=== PATIENT | female | born 1970 | race Caucasian/White ===

== ENCOUNTER 2016-11-20 12:44 | Emergency (ER) | payer OTHER ==
[2016-11-20 14:59] LABS: Urine Bacteria Absent (Absent); Urine Bilirubin Negative (Negative); Urine Glucose Negative (Negative); Urine Nitrite Negative (Negative)
[2016-11-20] MEDS ORDERED: Fluconazole 100 MG TAB* TAB PO ONE (15:23)
[2016-11-20] MEDS ORDERED: Ciprofloxacin TAB* 500 MG PO ONE (15:23)
[2016-11-20 15:36] VITALS: BP 126/62
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
== END 2016-11-20 15:35 | disposition home or self-care (01) ==
LOC: ED 12:44
DX: R32 Unspecified urinary incontinence (principal); B37.9 Candidiasis, unspecified; N39.0 Urinary tract infection, site not specified; F17.210 Nicotine dependence, cigarettes, uncomplicated
CPT/HCPCS: 81003; 81015; 87086; 99282; A9270-GY

== ENCOUNTER 2017-01-10 06:31 | Emergency (ER) | payer OTHER ==
[2017-01-10 06:45] VITALS: BP 131/76
[2017-01-10 07:10] LABS: Hematocrit 41 % (35-47); Hemoglobin 13.7 g/dl (12.0-16.0); Mean Corpuscular HGB Conc 33 g/dl (31-36); Mean Corpuscular Hemoglobin 31 pg (27-31); Mean Corpuscular Volume 94 fL (80-97); Mean Platelet Volume 10 um3 (7.4-10.4); Red Blood Count 4.37 10^6/ul (4.0-5.4); Red Cell Distribution Width 13 % (10.5-15); White Blood Count 7.7 10^3/ul (3.5-10.8)
[2017-01-10 07:30] LABS: ALT 12 U/L (7-52); AST 12 U/L (13-39); Albumin 4.1 g/dL (3.2-5.2); Alkaline Phosphatase 56 U/L (34-104); Anion Gap 4 mmol/L (2-11); BUN/Creatinine Ratio 11.1 (8-20); Blood Urea Nitrogen 9 mg/dL (6-24); CO2 Carbon Dioxide 27 mmol/L (22-32); Chloride 103 mmol/L (101-111); EGFR African American 98.3 (>60); EGFR Non-African American 76.5 (>60); Globulin 2.4 g/dL (2-4); Glucose 90 mg/dL (70-100); Potassium 3.3 mmol/L (3.5-5.0); Sodium 134 mmol/L (133-145); Total Protein 6.5 g/dL (6.4-8.9)
[2017-01-10 07:32] LABS: Urine Bacteria Absent (Absent); Urine Bilirubin Negative (Negative); Urine Glucose Negative (Negative); Urine Nitrite Negative (Negative)
[2017-01-10] MEDS ORDERED: Potassium Chlor TAB* 20 MEQ TAB.ER PO ONE (07:39)
[2017-01-10 07:51] LABS: Benzodiazepine Urine Screen None Detected (None Detect)
[2017-01-10 07:59] LABS: Acetaminophen < 15 mcg/mL; Alcohol < 10 mg/dL (<10); Salicylate < 2.50 mg/dL (<30)
[2017-01-10 08:10] LABS: TSH (Thyroid Stimulating Horm) 1.14 mcIU/mL (0.34-5.60)
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
== END 2017-01-10 08:07 | disposition left against medical advice (07) ==
LOC: ED 06:31
DX: F41.9 Anxiety disorder, unspecified (principal); R55 Syncope and collapse; R56.9 Unspecified convulsions; J45.909 Unspecified asthma, uncomplicated; F50.9 Eating disorder, unspecified; F17.210 Nicotine dependence, cigarettes, uncomplicated
CPT/HCPCS: 36415; 80053; 80307; 80320; 80329; 81003; 81015; 84443; 85025; 87086; 99282; G0480

== ENCOUNTER 2017-01-10 17:17 | Inpatient (IN) | payer MEDICAID ==
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
[2017-01-11] MEDS ORDERED: Acetaminophen TAB* 325 MG PO PRN (02:36)
[2017-01-11] MEDS ORDERED: Al Hydrox/Mg Hydrox/Simet LIQ* 30 ML UDC PO PRN (02:36)
[2017-01-11] MEDS ORDERED: Albuterol HFA INHALER* 8 gm MDI INH PRN (02:43)
[2017-01-11] MEDS ORDERED: Albuterol/Ipratropium RESP(NF) MDI (Combivent Respimat) INH PRN (02:45)
[2017-01-11] MEDS ORDERED: lamoTRIgine TAB(*) 100 MG PO SCH (09:00)
[2017-01-11] MEDS: CMCS:Lurasidone (NF) 40 MG TAB PO SCH (09:05)
[2017-01-11] MEDS: Mometasone/Formoter 200/5 MDI INH SCH ×2 (09:05→21:19)
[2017-01-11] MEDS: Docusate CAP* 100 MG PO SCH ×2 (09:07→21:18)
[2017-01-11] MEDS: Vitamin THERAPEUTIC TAB PO SCH (09:07)
[2017-01-11] MEDS: Benztropine TAB* 2 MG PO SCH ×2 (09:07→21:18)
[2017-01-11] MEDS: Fluticasone NASAL SPRAY 50MCG* 16 gm SPRAY BTL BOTH NARES SCH ×2 (09:07→21:17)
[2017-01-11] MEDS: BuPROPion XL* 150 MG TAB.XL PO SCH (09:07)
[2017-01-11] MEDS: Nicotine Inhaler* 10 MG AMP INH PRN ×2 (12:22→21:17)
[2017-01-11] MEDS ORDERED: Mouth Piece, Nicotine* 1 EACH CARTRIDGE ONE (12:22)
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
[2017-01-11] MEDS: lamoTRIgine TAB(*) 100 MG PO SCH (21:18)
[2017-01-11] MEDS: Montelukast Sodium TAB* 10 MG PO SCH (21:18)
[2017-01-11] MEDS: metroNIDAZOLE TAB* 250 MG PO SCH (21:18)
[2017-01-12] MEDS: Mometasone/Formoter 200/5 MDI INH SCH ×2 (08:11→21:48)
[2017-01-12] MEDS: Fluticasone NASAL SPRAY 50MCG* 16 gm SPRAY BTL BOTH NARES SCH ×2 (08:11→21:48)
[2017-01-12] MEDS: metroNIDAZOLE TAB* 250 MG PO SCH ×2 (08:12→21:48)
[2017-01-12] MEDS: Docusate CAP* 100 MG PO SCH ×2 (08:12→21:47)
[2017-01-12] MEDS: CMCS:Lurasidone (NF) 40 MG TAB PO SCH (08:12)
[2017-01-12] MEDS: Vitamin THERAPEUTIC TAB PO SCH (08:12)
[2017-01-12] MEDS: BuPROPion XL* 150 MG TAB.XL PO SCH (08:12)
[2017-01-12] MEDS: Benztropine TAB* 2 MG PO SCH ×2 (08:12→21:48)
[2017-01-12] MEDS: Diclofenac Sodium EC TAB* 25 MG PO PRN ×2 (08:15→13:45)
[2017-01-12] MEDS: Nicotine Inhaler* 10 MG AMP INH PRN ×3 (08:50→15:57)
--- NOTE | 2017-01-12 19:05 | PN ---
Subjective - Subjective Service Type: 10658 Hosp care 15 min low complexity Subjective: Patient noted to be visible in the milieu and participating in groups. On interview she is less activated, affect is brighter, and her attention to hygiene is improved. Patient is more restrained and does not express and delusional thinking during the interview. She is noticeably more linear in TP. Patient asked for the clinic name or the name of the surgeon who placed her permanent catheter 6 months ago. There are no records of patient having placement of a catheter at [facility] as patient reported on admission. Patient is unable to give this information. She was informed the hospitalist consult will be d/c'd as per ED exam there no urinary catheter. Patient reports no ongoing HI towards her case mx Shavonne. She reports she called Shavonne and apologized for displacing anger on her. Patient was asked if she made other threats of HI, as the ED note reported a homicidal threat made to her PCP. Patient denied this reporting she made no threats to her PCP, but has recently fired that person. Patient stated Shavonne was the only person she did this to, and again made the point to report she'd called her and apologized. Patient denies s/e's on higher dose of Latuda. Patient reports sleep , appetite and energy are wnl. She denies SI/HI and AH/VH. Objective - Appearance Appearance: Thin Framed Dysmorphic Features: No Hygiene: Normal Grooming: Well Kept - Behavior Psychomotor Activities: Normal Exhibits Abnormal Movement: No - Attitude and Relatedness Attitude and Relatedness: Cooperative Eye Contact: Good - Speech Quality: Unpressured Latencies: Normal Quantity: Appropriate - Mood Patient's Decription of Mood: "Good" - Affect Observed Affect: Fair Affect Consistent with: Euthymia - Thought Process Patient's Thought Process: Coherent Thought Content: No Passive Wish, No Suicidal Planning, No Homicidal Ideation, No Paranoid Ideation - Sensorium Experiencing Hallucinations: No, Sensorium is Clear Type of Hallucinations: Visual: No, Auditory: No, Command: No - Level of Consciousness Level of Consciousness: Alert Orientation: Yes Intact, Yes Orientated to Time, Yes Orientated to Place, Yes Orientated to Person - Impulse Control Impulse Control: Intact - Insight and Judgement Insight and Judgement: Fair - Group Participation Particating in Group Activities: Yes - Medication Management Medication Management Adherence: Yes Assessment - Assessment Merits Inpatient Hospitalization: For Immediate Safety, For Stabilization Inpatient DSM-IV Dx: 1. Delusional disorder Plan - Plan Treatment Plan: Name: LOUIS MUSTAFA Birthdate: 1970 [id number] PLAN: ------ 1. Continue admission to [facility] for safety and symptom mx. 2. Continue Latuda at 80mg po daily for psychosis. Continue remainder of psychotropic regimen at current doses. 3. Collateral information from [place], PCP, and COUNTS INCLUDE 234 BEDS AT THE [facility] providers. 4. Patient to participate in milieu activities and groups. Medications: Current Medications Acetaminophen (Tylenol Tab*) 650 mg PO Q4H PRN PRN Reason: PAIN or TEMP > 101 F Al Hydrox/Mg Hydrox/Simethicone (Maalox Plus*) 30 ml PO Q4H PRN PRN Reason: INDIGESTION Albuterol (Ventolin Hfa Inhaler*) 2 puff INH Q4H PRN PRN Reason: WHEEZING Albuterol/Ipratropium (Combivent Respimat(Nf)) 1 puff INH Q4H PRN PRN Reason: . Benztropine Mesylate (Cogentin Tab*) 2 mg PO BID [facility] Last Admin: 01/12/17 08:12 Dose: 2 mg Bupropion HCl (Wellbutrin Xl *) 150 mg PO QAM [facility] Last Admin: 01/12/17 08:12 Dose: 150 mg Diclofenac Sodium (Voltaren Ec Tab*) 50 mg PO TID PRN PRN Reason: PAIN Last Admin: 01/12/17 13:45 Dose: 50 mg Docusate Sodium (Colace Cap*) 100 mg PO BID [facility] Last Admin: 01/12/17 08:12 Dose: 100 mg Fluticasone Propionate (Flonase Nasal [place] 50mcg*) 1 spray BOTH NARES BID [facility] Last Admin: 01/12/17 08:11 Dose: 1 spray Lamotrigine (Lamictal Tab(*)) 200 mg PO BEDTIME [facility] Last Admin: 01/11/17 21:18 Dose: 200 mg Lurasidone HCl (Latuda (Nf)) 80 mg PO QAM [facility] Last Admin: 01/12/17 08:12 Dose: 80 mg Metronidazole (Flagyl Tab*) 500 mg PO BID [facility] Stop: 01/20/17 21:00 Last Admin: 01/12/17 08:12 Dose: 500 mg Mometasone Furoate/Formoterol Fumar (Dulera 200/5 Mdi*) 2 puff INH BID [facility] Last Admin: 01/12/17 08:11 Dose: 2 puff Montelukast Sodium (Singulair Tab*) 10 mg PO BEDTIME [facility] Last Admin: 01/11/17 21:18 Dose: 10 mg Multivitamins (Theragran Tab*) 1 tab PO DAILY [facility] Last Admin: 01/12/17 08:12 Dose: 1 tab Nicotine (Nicotine Inhaler*) 10 mg INH Q2H PRN PRN Reason: CRAVING Last Admin: 01/12/17 15:57 Dose: 10 mg - Discharge Plan Discharge Plan: Outpatient Follow Up
[2017-01-12] MEDS: Montelukast Sodium TAB* 10 MG PO SCH (21:47)
[2017-01-12] MEDS: lamoTRIgine TAB(*) 100 MG PO SCH (21:48)
[2017-01-13] MEDS: Nicotine Inhaler* 10 MG AMP INH PRN ×3 (08:25→14:36)
[2017-01-13] MEDS: Docusate CAP* 100 MG PO SCH ×2 (08:26→21:22)
[2017-01-13] MEDS: Benztropine TAB* 2 MG PO SCH ×2 (08:27→21:22)
[2017-01-13] MEDS: Mometasone/Formoter 200/5 MDI INH SCH ×2 (08:27→21:28)
[2017-01-13] MEDS: Fluticasone NASAL SPRAY 50MCG* 16 gm SPRAY BTL BOTH NARES SCH ×2 (08:27→21:29)
[2017-01-13] MEDS: CMCS:Lurasidone (NF) 40 MG TAB PO SCH (08:28)
[2017-01-13] MEDS: Vitamin THERAPEUTIC TAB PO SCH (08:28)
[2017-01-13] MEDS: metroNIDAZOLE TAB* 250 MG PO SCH ×2 (08:28→21:22)
[2017-01-13] MEDS: BuPROPion XL* 150 MG TAB.XL PO SCH (08:28)
[2017-01-13] MEDS: Diclofenac Sodium EC TAB* 25 MG PO PRN ×2 (08:29→14:37)
--- NOTE | 2017-01-13 17:02 | PN ---
Subjective - Subjective Service Type: 38692 Hosp care 15 min low complexity Subjective: Patient again bright on interview. She is pleasant, calm and cooperative. Patient noted to be visible in the milieu and participating in groups. Patient reports med compliance and denies med s/e. Patient reports sleep and appetite have been good. She denies racing thoughts and irritability. She has displayed no aggressive behaviors on the unit. Patient has not been threatening since admission. She has not expressed delusions to this provider in over 48hrs. Patient denies SI and HI and denies AH/VH. Patient informed staff from [facility] will be called to eval patient for readiness to return to the residence. She is amenable. Objective - Appearance Appearance: Well Developed/Nourished Dysmorphic Features: No Hygiene: Normal Grooming: Well Kept - Behavior Psychomotor Activities: Normal Exhibits Abnormal Movement: No - Attitude and Relatedness Attitude and Relatedness: Cooperative Eye Contact: Good - Speech Quality: Unpressured Latencies: Normal Quantity: Appropriate - Mood Patient's Decription of Mood: "Good" - Affect Observed Affect: Good Affect Consistent with: Euthymia - Thought Process Patient's Thought Process: Coherent Thought Content: No Passive Wish, No Suicidal Planning, No Homicidal Ideation, No Paranoid Ideation - Sensorium Experiencing Hallucinations: No, Sensorium is Clear Type of Hallucinations: Visual: No, Auditory: No, Command: No - Level of Consciousness Level of Consciousness: Alert Orientation: Yes Intact, Yes Orientated to Time, Yes Orientated to Place, Yes Orientated to Person - Impulse Control Impulse Control: Intact - Insight and Judgement Insight and Judgement: Fair - Group Participation Particating in Group Activities: Yes - Medication Management Medication Management Adherence: Yes Assessment - Assessment Merits Inpatient Hospitalization: For Immediate Safety, For Stabilization Inpatient DSM-IV Dx: 1. Delusional disorder. 2. r/o Bipolar disorder Plan - Plan Treatment Plan: Name: LOUIS MUSTAFA Birthdate: 1970 [id number] PLAN: ------ 1. Continue admission to [facility] for safety and symptom mx. 2. Continue Latuda at 80mg po daily for psychosis. Continue remainder of psychotropic regimen at current doses. 3. Dr. Silveira called in regard to med modification. Left . 4. [facility] staff called to set up time to reevaluate patient for readiness to return to residence. 5. Patient to participate in milieu activities and groups. Medications: Current Medications Acetaminophen (Tylenol Tab*) 650 mg PO Q4H PRN PRN Reason: PAIN or TEMP > 101 F Al Hydrox/Mg Hydrox/Simethicone (Maalox Plus*) 30 ml PO Q4H PRN PRN Reason: INDIGESTION Albuterol (Ventolin Hfa Inhaler*) 2 puff INH Q4H PRN PRN Reason: WHEEZING Albuterol/Ipratropium (Combivent Respimat(Nf)) 1 puff INH Q4H PRN PRN Reason: . Benztropine Mesylate (Cogentin Tab*) 2 mg PO BID [facility] Last Admin: 01/13/17 08:27 Dose: 2 mg Bupropion HCl (Wellbutrin Xl *) 150 mg PO QAM [facility] Last Admin: 01/13/17 08:28 Dose: 150 mg Diclofenac Sodium (Voltaren Ec Tab*) 50 mg PO TID PRN PRN Reason: PAIN Last Admin: 01/13/17 14:37 Dose: 50 mg Docusate Sodium (Colace Cap*) 100 mg PO BID [facility] Last Admin: 01/13/17 08:26 Dose: 100 mg Fluticasone Propionate (Flonase Nasal [place] 50mcg*) 1 spray BOTH NARES BID [facility] Last Admin: 01/13/17 08:27 Dose: 1 spray Lamotrigine (Lamictal Tab(*)) 200 mg PO BEDTIME [facility] Last Admin: 01/12/17 21:48 Dose: 200 mg Lurasidone HCl (Latuda (Nf)) 80 mg PO QAM [facility] Last Admin: 01/13/17 08:28 Dose: 80 mg Metronidazole (Flagyl Tab*) 500 mg PO BID [facility] Stop: 01/20/17 21:00 Last Admin: 01/13/17 08:28 Dose: 500 mg Mometasone Furoate/Formoterol Fumar (Dulera 200/5 Mdi*) 2 puff INH BID [facility] Last Admin: 01/13/17 08:27 Dose: 2 puff Montelukast Sodium (Singulair Tab*) 10 mg PO BEDTIME [facility] Last Admin: 01/12/17 21:47 Dose: 10 mg Multivitamins (Theragran Tab*) 1 tab PO DAILY [facility] Last Admin: 01/13/17 08:28 Dose: 1 tab Nicotine (Nicotine Inhaler*) 10 mg INH Q2H PRN PRN Reason: CRAVING Last Admin: 01/13/17 14:36 Dose: 10 mg - Discharge Plan Discharge Plan: Outpatient Follow Up Outpatient Program: [facility]
[2017-01-13] MEDS: Montelukast Sodium TAB* 10 MG PO SCH (21:22)
[2017-01-13] MEDS: lamoTRIgine TAB(*) 100 MG PO SCH (21:22)
[2017-01-14 07:26] VITALS: BP 121/70
[2017-01-14] MEDS: Fluticasone NASAL SPRAY 50MCG* 16 gm SPRAY BTL BOTH NARES SCH (08:34)
[2017-01-14] MEDS: Benztropine TAB* 2 MG PO SCH (08:35)
[2017-01-14] MEDS: Mometasone/Formoter 200/5 MDI INH SCH (08:35)
[2017-01-14] MEDS: CMCS:Lurasidone (NF) 40 MG TAB PO SCH (08:35)
[2017-01-14] MEDS: BuPROPion XL* 150 MG TAB.XL PO SCH (08:35)
[2017-01-14] MEDS: Vitamin THERAPEUTIC TAB PO SCH (08:36)
[2017-01-14] MEDS: Docusate CAP* 100 MG PO SCH (08:36)
[2017-01-14] MEDS: metroNIDAZOLE TAB* 250 MG PO SCH (08:36)
[2017-01-14] MEDS: Nicotine Inhaler* 10 MG AMP INH PRN ×2 (13:31→15:21)
--- NOTE | 2017-01-14 16:37 | DS ---
Subjective - Subjective Service Types: [id number] [facility] Day Mgmt simple under 30 min Treatment Course & Assessment Clinical Course & Impression: HOSPITAL COURSE: Patient admitted after report to police from patient's that she made suicidal statement and has been displaying worsening depressive symptoms. Patient has significant stressor in that the she has lost custody of her 9yo due to CPS/DSS error. She reports her work to have the case re-evaluated with the information she now has has not been undertaken. She reports the DSS "hoops" have become a burden and CPS has recently decrease patient's visitation with her 9yo because of her not getting proof of counseling in as required. Patient reported again on day of discharge that her statement was made in anger. She has reported no SI/HI since admission Wednesday. Patient was med compliant, requesting her home med regimen be continued,which had been beneficial, reporting she wants to discuss recommended modification with her [facility] psychiatrist. On day of discharge patient calm and cooperative. She is psychiatrically stable and future oriented. She is amenable to discharge f/u plan. Patient asked to present to her local ED if SI recurs. She was amenable and acknowledged understanding of her family and community supports. Patient is future oriented, now re-enrolled for next semester and has set goals to restore her finances and get back into her own apartment. Patient's immediate suicide risk profile has been significantly reduced. While acute risk is low now, patient's overall risk profile is fluid. A new stressor could trigger a suicide attempt at any time. Patient's modifiable symptoms at admission have resolved, AHs, SI with plan. Patient is requesting discharge, and as the therapeutic yield from this admission is notably been maxed, patient's request will be respected. Pateint's acute risk has been reduced significantly. Patient is amenable to f/u and will be discharge home to mother's care. PERTINENT LABS: Lipid panel (04/2016) - wnl HgBA1C (04/2016) - wnl Laboratory Tests Discharge Meds: HOSPITAL COURSE: Patient asked to present to her local ED if SI recurs. She was amenable and acknowledged understanding of her family and community supports. Patient is future oriented, now re-enrolled for next semester and has set goals to restore her finances and get back into her own apartment. Patient's immediate suicide risk profile has been significantly reduced. While acute risk is low now, patient's overall risk profile is fluid. A new stressor could trigger a suicide attempt at any time. Patient's modifiable symptoms at admission have resolved, AHs, SI with plan. Patient is requesting discharge, and as the therapeutic yield from this admission is notably been maxed, patient's request will be respected. Pateint's acute risk has been reduced significantly. Patient is amenable to f/u and will be discharge home to mother's care. PERTINENT LABS: Lipid panel (04/2016) - wnl HgBA1C (04/2016) - wnl Laboratory Tests Discharge Meds: Home Medications Medication Instructions Recorded Confirmed Type Advair Diskus 250-50* 1 puff INH BID 06/07/12 06/07/12 History Albuterol HFA INHALER* [Ventolin 2 puff .SEE ORDER QID PRN 06/30/12 06/30/12 History HFA Inhaler*] Fluticasone-Salmeterol 250-50* 1 puff .SEE ORDER BID 06/30/12 06/30/12 History [Advair Diskus 250-50*] Montelukast Sodium TAB* [Singulair 10 mg PO DAILY 06/30/12 06/30/12 History 10 MG TAB*] Diclofenac Sodium [Diclofenac 50 mg PO TID PRN #30 tab 11/12/[address]] Benztropine TAB* [Cogentin TAB*] 2 mg PO BID #60 01/14/17 Rx Bupropion XL* [Wellbutrin XL *] 150 mg PO QAM #30 tab 01/14/17 Rx Lurasidone (NF) [Latuda (NF)] 80 mg PO QAM #60 tab 01/14/17 Rx lamoTRIgine TAB(*) [Lamictal 200 mg PO DAILY #60 01/14/17 Rx TAB(*)] metroNIDAZOLE TAB* [Flagyl 250 mg 500 mg PO BID #14 tab 01/14/17 Rx TAB*] traZODone TAB* [Desyrel TAB*] 150 mg PO BEDTIME #90 01/14/17 Rx Inpatient DSM-IV Dx: 1. Delusional disorder. 2. r/o Bipolar disorder Discharge Planning - Discharge Planning Medications: Medication Instructions Recorded Confirmed Type Advair Diskus 250-50* 1 puff INH BID 06/07/12 06/07/12 History Albuterol HFA INHALER* [Ventolin 2 puff .SEE ORDER QID PRN 06/30/12 06/30/12 History HFA Inhaler*] Benztropine TAB* [Cogentin TAB*] 2 mg PO BID 06/30/12 06/30/12 History Fluticasone-Salmeterol 250-50* 1 puff .SEE ORDER BID 06/30/12 06/30/12 History [Advair Diskus 250-50*] HydrOXYzine PAMOATE* [Vistaril 100 mg PO BID 06/30/12 06/30/12 History CAP*] Montelukast Sodium TAB* [Singulair 10 mg PO DAILY 06/30/12 06/30/12 History 10 MG TAB*] lamoTRIgine TAB(*) [Lamictal 200 mg PO DAILY 06/30/12 06/30/12 History TAB(*)] traZODone TAB* [Desyrel TAB*] 150 mg PO BEDTIME 06/30/12 06/30/12 History Diclofenac Sodium [Diclofenac 50 mg PO TID PRN #30 tab 11/12/[address]] Bupropion XL* [Wellbutrin XL *] 150 mg PO QAM tab 01/14/17 Rx Lurasidone (NF) [Latuda (NF)] 80 mg PO QAM tab 01/14/17 Rx Discharge Planning: Prescriptions provided for discharge [x] Yes [] No Follow up care details as per social work arrangements. Patient response to discharge plan: [] eager for discharge [x] agreeable with discharge plan [] ambivalent about discharge [] disagrees with discharge today
== END 2017-01-14 16:40 | disposition home or self-care (01) | DRG 760 ==
LOC: ED 17:17 → BSU 21:20
PROVIDERS: ADMIT Psychiatry & Neurology Psychiatry; ATTEND Psychiatry & Neurology Psychiatry
DX: F22 Delusional disorders (principal); R45.851 Suicidal ideations; F50.9 Eating disorder, unspecified; F31.9 Bipolar disorder, unspecified; F12.90 Cannabis use, unspecified, uncomplicated; J44.9 Chronic obstructive pulmonary disease, unspecified; F17.210 Nicotine dependence, cigarettes, uncomplicated; R40.2412 Glasgow coma scale score 13-15, at arrival to emergency department; R87.5 Abnormal microbiological findings in specimens from female genital organs; Z88.8 Allergy status to other drugs, medicaments and biological substances; Z81.8 Family history of other mental and behavioral disorders; Z91.048 Other nonmedicinal substance allergy status
CPT/HCPCS: 87480; 87491; 87510; 87591; 87661; 99222; 99231; 99238; A9270-GY

== ENCOUNTER 2019-04-02 19:15 | Emergency (ER) | payer OTHER ==
--- NOTE | 2019-04-02 19:38 | ED ---
Back Pain - HPI Summary HPI Summary: This patient is a 48 year old F BIBA to ED via EMS with a chief complaint of sudden left lower back pain since 0230 this morning. When she went to bed last night, she felt a mild pinch, not the pain she has now. Patient has been sleeping most of the day with a heat pack. She denies having similar symptoms before. She denies a history of kidney stones or kidney disease. Patient denies urinary symptoms, nausea, vomiting, and diarrhea. Her last bowel movement was last night. She reports starting her period one hour ago. The patient rates the pain 7/10 in severity. Symptoms aggravated by movement (bending/twisting). Symptoms alleviated by nothing. - History of Current Complaint Chief Complaint: EDFlankPain Stated Complaint: BACK PAIN PER EMS Time Seen by Provider: 04/02/19 19:29 Hx Obtained From: Patient Onset/Duration: Sudden Onset, Lasting Hours - Since 0230 this morning, Still Present Onset/Duration: Started Hours Ago - Since 229 this morning, Still Present Timing: Constant, Lasting Hours - Since 229 this morning Back Pain Location: Is Discrete @ - Lower left Severity Initially: Moderate Severity Currently: Moderate Pain Intensity: 7 Pain Scale Used: 0-10 Numeric Aggravating Symptom(s): Movement, Bending Alleviating Symptom(s): Nothing Associated Signs And Symptoms: Positive: Negative - N/V/D. Negative: Bladder Incontinence - Allergies/Home Medications Allergies/Adverse Reactions: Allergies Allergy/AdvReac Type Severity Reaction Status Date / Time lurasidone [From Latuda] Allergy Leg Cramps Verified 04/02/19 19:49 MS Cat Hair Extract Allergy Sneezing Verified 01/10/17 17:39 [Cat Hair Extract] MS Gabapentin Allergy Dizziness Verified 01/10/17 17:39 [From Neurontin] Home Medications: Home Medications ARIPiprazole [Aripiprazole] 20 mg PO DAILY 04/02/19 [History Confirmed 04/02/19] PMH/Surg Hx/FS Hx/Imm Hx Endocrine/Hematology History: Denies: Hx Diabetes, Hx Systemic Lupus Erythematosus Cardiovascular History: Reports: Other Cardiovascular Problems/Disorders - "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, I guess I will have open heart sx" Denies: Hx Congestive Heart Failure, Hx Hypertension, Hx Pacemaker/ICD Respiratory History: Reports: Hx Asthma History: Reports: Other Problems/Disorders - 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 Denies: Hx Dialysis, Hx Renal Disease Musculoskeletal History: Denies: Hx Rheumatoid Arthritis Sensory History: Reports: Hx Contacts or Glasses - glasses, does not know where they are Denies: Hx Hearing Aid Opthamlomology History: Reports: Hx Contacts or Glasses - glasses, does not know where they are Neurological History: Reports: Hx Migraine, Hx Seizures - last one month ago, per patient Psychiatric History: Reports: Hx Inpatient Treatment, Hx Community Mental Health Tx, Hx Schizophrenia, Hx of Violent Episodes Against Others, Hx Substance Abuse Denies: Hx Eating Disorder, Hx Panic Disorder - Cancer History Cancer Type, Location and Year: patient reports undergoing tx for CA at this facility, no records found Hx Chemotherapy: No - Surgical History Surgery Procedure, Year, and Place: 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 (pt states done at [facility] [place], records do not corroborate this) - Immunization History Date of Tetanus Vaccine: Unknown Infectious Disease History: No Infectious Disease History: Denies: History Other Infectious Disease, Traveled Outside the [place] in Last 30 Days - Family History Known Family History: Positive: Other - Anxiety, depression - Social History Alcohol Use: None Substance Use Type: Reports: Marijuana Substance Use Comment - Amount & Last Used: patient reports prescribed only Smoking Status (MU): Heavy Every Day Tobacco Smoker Type: Cigarettes Amount Used/How Often: one ppd Length of Time of Smoking/Using Tobacco: "years" Have You Smoked in the Last Year: Yes Review of Systems Negative: Vomiting, Diarrhea, Nausea Genitourinary: Negative - Urinary symptoms Musculoskeletal: Other - Lower left back pain All Other Systems Reviewed And Are Negative: Yes Physical Exam - Summary Physical Exam Summary: Appearance: Well-appearing, Well-nourished, lying in bed comfortably Skin: Warm, dry, no obvious rash Eyes: sclera anicteric, no conjunctival pallor ENT: mucous membranes moist, pharynx appears normal Neck: Supple, nontender Respiratory: Clear to auscultation, no signs of respiratory distress Cardiovascular: Normal S1, S2. No murmurs. Normal distal pulses in tibial and radial bilaterally. Abdomen: Soft, nontender, normal active bowel sounds present Musculoskeletal: Normal, Strength/ROM Intact Neurological: A&Ox3, awake and alert, mentation is normal, speech is fluent and appropriate Psychiatric: affect is normal, does not appear anxious or depressed Triage Information Reviewed: Yes Vital Signs On Initial Exam: Initial Vitals Temp Pulse Resp BP Pulse Ox 97.9 F 93 18 129/79 94 04/02/19 19:22 04/02/19 19:22 04/02/19 19:22 04/02/19 19:22 04/02/19 19:22 Vital Signs Reviewed: Yes Procedures - Sedation Patient Received Moderate/Deep Sedation with Procedure: No Diagnostics - Vital Signs Vital Signs Temp Pulse Resp BP Pulse Ox 04/02/19 19:23 91 129/79 93 04/02/19 19:22 97.9 F 93 18 129/79 94 - Laboratory Result Diagrams: 04/02/19 20:13 04/02/19 20:13 Lab Statement: Any lab studies that have been ordered have been reviewed, and results considered in the medical decision making process. - Radiology CXR Radiology Interpretation Completed By: ED Physician Summary of Radiographic Findings: No acute processes, pending official radiology report. - Ultrasound Renal Ultrasound Interpretation Completed By: Radiologist Summary of Ultrasound Findings: Sonographically normal left kidney. Dr. Milligan has reviewed this radiology report. Re-Evaluation - Re-Evaluation First Eval Re-Evaluation Time: 21:37 Change: Improved Comment: Patient reports feeling better. Second Eval Re-Evaluation Time: 23:33 Comment: Discussed results with patient. Patient rate pain 4/10 down from initial 7/10. Will perform a renal US to r/o renal calculi. Third Eval Re-Evaluation Time: 01:26 Comment: Discussed results with patient. Patient will be discharged home with dx of back pain. Patient understands and agrees with this plan. Back Pain Course/Dx - Course Course Of Treatment: This patient is a 48 year old F BIBA to ED via EMS with a chief complaint of sudden left lower back pain since 0230 this morning. In the ED course, patient received fluids and Toradol. Blood work revealed AST 11, total protein 6.3. UA revealed squamous epithelial cell present, specific gravity 1.008, 2+ RBC, and 1+ bacteria. CXR revealed no acute processes, pending official radiology report. Renal US revealed sonographically normal left kidney. Discussed results with patient. Patient will be discharged home with dx of back pain. Patient understands and agrees with this plan. - Diagnoses Provider Diagnoses: Back pain Discharge ED - Sign-Out/Discharge Documenting (check all that apply): Patient Departure - Discharge - Discharge Plan Condition: Stable Disposition: HOME Prescriptions: Naproxen [Naproxen 375 mg tab] 375 mg PO BID #30 tablet Patient Education Materials: Back Pain (ED) Referrals: Neda Landon MD [Medical Doctor] - 1 Week (if not improving) - Billing Disposition and Condition Condition: STABLE Disposition: Home - Attestation Statements Document Initiated by Varsha: Yes Documenting Scribe: Kai Cason Provider For Whom Varsha is Documenting (Include Credential): Sergio Milligan MD Scribe Attestation: Kai Ibrahim scribed for Sergio Milligan MD on 04/10/19 at 0521. Scribe Documentation Reviewed: Yes Provider Attestation: The documentation as recorded by the Kai mak accurately reflects the service I personally performed and the decisions made by me, Sergio Milligan MD Status of Scribe Document: Viewed
[2019-04-02] MEDS ORDERED: Ketorolac INJ* 30 MG/ML 1 ML VIAL IV PUSH ONE (19:44)
[2019-04-02] MEDS ORDERED: NS 0.9% 1000 ML** 1,000 ML IV ONE (19:44)
[2019-04-02 20:20] LABS: ABS Basophils 0.1 10^3/ul (0-0.2); ABS Eosinophils 0.1 10^3/ul (0-0.6); ABS Lymphocytes 2.8 10^3/ul (1.0-4.8); ABS Monocytes 0.5 10^3/ul (0-0.8); ABS Neutrophils 4.9 10^3/ul (1.5-7.7); Eosinophil % 1.6 %; Hematocrit 41 % (35-47); Lymphocyte % 33.1 %; Mean Corpuscular HGB Conc 34 g/dL (31-36); Mean Corpuscular Hemoglobin 31 pg (27-31); Mean Corpuscular Volume 90 fL (80-97); Mean Platelet Volume 9.9 fL (7.4-10.4); Platelet Count 173 10^3/uL (150-450); Red Blood Count 4.55 10^6 /uL (3.70-4.87); Red Cell Distribution Width 14 % (10-15); White Blood Count 8.3 10^3/uL (3.5-10.8)
[2019-04-02 20:32] LABS: Urine Appearance Cloudy; Urine Bacteria 1+ (Absent); Urine Bilirubin Negative (Negative); Urine Blood 3+ (Negative); Urine Color Yellow; Urine Glucose Negative (Negative); Urine Ketones Negative (Negative); Urine Nitrite Negative (Negative); Urine Protein Negative (Negative); Urine Red Blood Cell 2+(6-10/hpf) (Absent); Urine Specific Gravity 1.008 (1.010-1.030); Urine Squamous Epithelial Cell Present (Absent); Urine Urobilinogen Negative (Negative); Urine White Blood Cell Trace(0-5/hpf) (Absent)
[2019-04-02 20:36] LABS: ALT 7 U/L (7-52); AST 11 U/L (13-39); Albumin 4.1 g/dL (3.2-5.2); Albumin/Globulin Ratio 1.9 (1-3); Alkaline Phosphatase 64 U/L (34-104); Anion Gap 6 mmol/L (2-11); BUN/Creatinine Ratio 15.9 (8-20); Blood Urea Nitrogen 11 mg/dL (6-24); CO2 Carbon Dioxide 26 mmol/L (22-32); Calcium 9.4 mg/dL (8.6-10.3); Chloride 106 mmol/L (101-111); EGFR African American 110.3 (>60); EGFR Non-African American 91.2 (>60); Globulin 2.2 g/dL (2-4); Glucose 81 mg/dL (70-100); Potassium 3.6 mmol/L (3.5-5.0); Sodium 138 mmol/L (135-145); Total Protein 6.3 g/dL (6.4-8.9)
[2019-04-02 20:43] LABS: HCG Pregnancy < 0.60 mIU/mL
[2019-04-02 21:15] LABS: HIV 4th Generation Nonreactive (Nonreactive)
[2019-04-03 01:34] VITALS: BP 142/75
== END 2019-04-03 01:31 | disposition home or self-care (01) ==
LOC: ED 19:15
DX: M54.5 Low back pain (principal); R07.81 Pleurodynia; Z88.8 Allergy status to other drugs, medicaments and biological substances; Z91.048 Other nonmedicinal substance allergy status; F17.210 Nicotine dependence, cigarettes, uncomplicated
CPT/HCPCS: 36415; 71046; 76775; 80053; 81003; 81015; 84702; 85025; 85379; 87086; 87389; 96361; 96374; 99283; J1885

== ENCOUNTER 2021-03-27 16:22 | Inpatient (IN) ==
[2021-03-27 17:48] LABS: ABS Basophils 0.1 10^3/ul (0-0.2); ABS Eosinophils 0.1 10^3/ul (0-0.6); ABS Lymphocytes 2.8 10^3/ul (1.0-4.8); ABS Monocytes 0.7 10^3/ul (0-0.8); ABS Neutrophils 8.3 10^3/ul (1.5-7.7); Hematocrit 45 % (35-47); Hemoglobin 15.1 g/dL (12.0-16.0); Mean Corpuscular HGB Conc 34 g/dL (31-36); Mean Corpuscular Hemoglobin 31 pg (27-31); Mean Corpuscular Volume 91 fL (80-97); Mean Platelet Volume 9.7 fL (7.4-10.4); Platelet Count 177 10^3/uL (150-450); Red Blood Count 4.96 10^6 /uL (3.70-4.87); Red Cell Distribution Width 13 % (10-15)
[2021-03-27 17:51] LABS: Urine Appearance Cloudy; Urine Bilirubin Negative (Negative); Urine Blood 1+ (Negative); Urine Color Yellow; Urine Glucose Negative (Negative); Urine Ketones Negative (Negative); Urine Nitrite Negative (Negative); Urine Protein Negative (Negative); Urine Specific Gravity 1.008 (1.002-1.030); Urine Urobilinogen Negative (Negative)
[2021-03-27 17:59] LABS: Urine Bacteria 3+ (Absent); Urine Red Blood Cell Trace(0-2/hpf) (Absent); Urine Squamous Epithelial Cell Present (Absent); Urine White Blood Cell Absent (Absent)
[2021-03-27 18:00] LABS: ALT 18 U/L (7-52); AST 16 U/L (13-39); Albumin/Globulin Ratio 1.4 (1-3); Alkaline Phosphatase 76 U/L (35-149); Anion Gap 5 mmol/L (2-11); Blood Urea Nitrogen 6 mg/dL (6-24); CO2 Carbon Dioxide 27 mmol/L (22-32); Calcium 9.6 mg/dL (8.6-10.3); Chloride 102 mmol/L (101-111); EGFR African American 131.1 (>60); EGFR Non-African American 108.3 (>60); Globulin 2.8 g/dL (2-4); Glucose 94 mg/dL (70-100); Potassium 3.8 mmol/L (3.5-5.0); Sodium 134 mmol/L (135-145); Total Protein 6.8 g/dL (6.4-8.9)
[2021-03-27 18:09] LABS: Acetaminophen < 15 mcg/mL; Alcohol, S < 13 mg/dL (<13); Salicylate < 2.50 mg/dL (<30)
[2021-03-27 18:23] LABS: TSH Ultra Thyroid Stim Horm 0.85 mcIU/mL (0.34-5.60)
[2021-03-27 18:25] LABS: Urine Benzodiazepine Screen None Detected (None Detect); Urine Cannabinoids Screen Presumptive Positive (None Detect); Urine Opiates Screen None Detected (None Detect)
[2021-03-27] MEDS ORDERED: Nicotine PATCH 21 MG/24 HR PATCH TRANSDERM ONE (19:29)
[2021-03-27 22:29] LABS: Rapid COVID-19 Molecular Undetected (Undetected)
[2021-03-27] MEDS ORDERED: Al Hydrox/Mg Hydrox/Simet LIQ 30 ML UDC PO PRN (23:06)
[2021-03-27] MEDS ORDERED: Albuterol HFA INHALER 8 gm MDI INH PRN (23:13)
[2021-03-28] MEDS: Vitamin THERAPEUTIC TAB PO SCH (10:56)
[2021-03-28] MEDS: Mometasone/Formoter 200/5 MDI INH SCH ×2 (10:57→20:21)
[2021-03-28] MEDS: Nicotine PATCH 21 MG/24 HR PATCH TRANSDERM SCH (10:59)
[2021-03-28 13:12] LABS: Cholesterol 177 mg/dL; HDL Cholesterol 28.2 mg/dL; LDL Cholesterol 76 mg/dL; Triglycerides 365 mg/dL
[2021-03-28 13:18] LABS: HCG Pregnancy 1.31 mIU/mL
[2021-03-28] MEDS: Nicotine GUM 2MG FRUIT FLAVOR PO PRN (21:19)
[2021-03-29] MEDS: Nicotine GUM 2MG FRUIT FLAVOR PO PRN ×4 (00:41→21:59)
[2021-03-29] MEDS: Mometasone/Formoter 200/5 MDI INH SCH ×2 (08:58→19:38)
[2021-03-29] MEDS: Nicotine PATCH 21 MG/24 HR PATCH TRANSDERM SCH (08:59)
[2021-03-29] MEDS: Vitamin THERAPEUTIC TAB PO SCH (09:00)
[2021-03-30] MEDS: Mometasone/Formoter 200/5 MDI INH SCH ×2 (07:52→20:10)
[2021-03-30] MEDS: Nicotine PATCH 21 MG/24 HR PATCH TRANSDERM SCH (07:52)
[2021-03-30] MEDS: Vitamin THERAPEUTIC TAB PO SCH (07:53)
[2021-03-30 08:40] LABS: HDL Cholesterol 40.7 mg/dL
[2021-03-30] MEDS: Nicotine GUM 2MG FRUIT FLAVOR PO PRN (21:48)
[2021-03-31] MEDS: Nicotine GUM 2MG FRUIT FLAVOR PO PRN ×4 (02:58→22:36)
[2021-03-31] MEDS: Nicotine PATCH 21 MG/24 HR PATCH TRANSDERM SCH (07:28)
[2021-03-31] MEDS: Mometasone/Formoter 200/5 MDI INH SCH ×2 (08:22→20:16)
[2021-03-31] MEDS: Vitamin THERAPEUTIC TAB PO SCH (08:25)
[2021-04-01] MEDS: Nicotine GUM 2MG FRUIT FLAVOR PO PRN ×2 (03:57→19:41)
[2021-04-01] MEDS: Mometasone/Formoter 200/5 MDI INH SCH ×2 (08:20→19:40)
[2021-04-01] MEDS: Vitamin THERAPEUTIC TAB PO SCH (08:21)
[2021-04-01] MEDS: Nicotine PATCH 21 MG/24 HR PATCH TRANSDERM SCH (08:47)
[2021-04-02] MEDS: Nicotine GUM 2MG FRUIT FLAVOR PO PRN ×2 (05:08→19:52)
[2021-04-02] MEDS: Nicotine PATCH 21 MG/24 HR PATCH TRANSDERM SCH (08:07)
[2021-04-02] MEDS: Vitamin THERAPEUTIC TAB PO SCH (08:08)
[2021-04-02] MEDS: Mometasone/Formoter 200/5 MDI INH SCH ×2 (08:08→19:50)
[2021-04-03] MEDS: Mometasone/Formoter 200/5 MDI INH SCH ×2 (08:48→19:49)
[2021-04-03] MEDS: Nicotine PATCH 21 MG/24 HR PATCH TRANSDERM SCH (08:48)
[2021-04-03] MEDS: Vitamin THERAPEUTIC TAB PO SCH (08:49)
[2021-04-03] MEDS: Nicotine GUM 2MG FRUIT FLAVOR PO PRN (19:49)
[2021-04-04] MEDS: Nicotine GUM 2MG FRUIT FLAVOR PO PRN (03:36)
[2021-04-04] MEDS: Nicotine PATCH 21 MG/24 HR PATCH TRANSDERM SCH (07:21)
[2021-04-04] MEDS: Vitamin THERAPEUTIC TAB PO SCH (07:23)
[2021-04-04] MEDS: Mometasone/Formoter 200/5 MDI INH SCH (07:26)
[2021-04-04 07:55] VITALS: BP 136/107
== END 2021-04-04 13:00 | disposition home or self-care (01) | DRG 750 ==
LOC: ED 16:22 → BSU 22:39
PROVIDERS: ADMIT Psychiatry & Neurology Psychiatry; ATTEND Psychiatry & Neurology Psychiatry